=== PATIENT | male | born 1995 | race African-American/Black ===

== ENCOUNTER 2017-01-13 09:33 | Emergency (ER) | payer OTHER ==
[~2017-01-13] VITALS: Ht 177.8 cm; Wt 106.0 kg
[2017-01-13 09:35] VITALS: BP 183/96; PULSE 98; RESP 16; TEMP 98.7; O2SAT 100
[2017-01-13 09:48] VITALS: BP 150/74; PULSE 89; RESP 16; O2SAT 99
[2017-01-13 10:16] LABS: AUTOMATED NEUTROPHIL # 5.7 TH/MM3 (1.8-7.7); BASOPHIL % 0.5 % (0.0-2.0); EOSINOPHIL # 0.1 TH/MM3 (0-0.4); HEMATOCRIT 41.4 % (39.0-51.0); HEMO FLAGS DIFF FINAL; LYMPHOCYTE # 1.4 TH/MM3 (1.0-4.8); MEAN CELL VOLUME 74.2 FL (80.0-100.0); MEAN CORPUSCULAR HEMOGLOBIN 23.5 PG (27.0-34.0); MEAN CORPUSCULAR HGB CONC 31.7 % (32.0-36.0); NEUT % 73.5 % (16.0-70.0); PLATELET COUNT 214 TH/MM3 (150-450); RED BLOOD COUNT 5.58 MIL/MM3 (4.50-5.90); RED CELL DISTRIBUTION WIDTH 13.2 % (11.6-17.2); WHITE BLOOD COUNT 7.7 TH/MM3 (4.0-11.0)
--- NOTE | 2017-01-13 10:23 | PD ---
HPI . Hypertension Chief Complaint: Hypertension Time Seen by Provider: 09:40 Travel History International Travel<30 days: No Contact w/Intl Traveler<30days: No Traveled to known affect area: No History of Present Illness HPI 21 year old male patient presents to the emergency department for evaluation of elevated blood pressure. Patient works at the [employer] and was irritated at work. The nurse on site took his blood pressure and it was elevated in the 170s systolically. The patient states he was told his blood pressure runs high since he was a child, but he has never taken any medication for it. The patient denies any physiological symptoms. No headache, blurred vision, abdominal pain, chest pain, shortness of breath, fever, chills, malaise. The patient doesn't have any other history and doesn't take any daily medications. PFSH Past Medical History Cardiovascular Problems: Yes (HTN) Diminished Hearing: No Hypertension: Yes (pt report HBP in the past but does not take meds) Tetanus Vaccination: > 5 Years Influenza Vaccination: No Past Surgical History Surgical History: No Previous Surgery Social History Alcohol Use: No Tobacco Use: No Substance Use: No Allergies-Medications (Allergen,Severity, Reaction): Coded Allergies: No Known Allergies (Verified Allergy, Unknown, 01/13/17) Reported Meds & Prescriptions Reported Meds & Active Scripts Active No Active Prescriptions or Reported Medications Review of Systems Except as stated in HPI: all other systems reviewed are Neg Physical Exam Narrative GENERAL: Well-nourished, well-developed 21 year old black male patient in no acute distress. Nontoxic appearing. SKIN: Focused skin assessment warm/dry. HEAD: Normocephalic. Atraumatic. NEUROLOGICAL: Awake and alert. Cranial nerves II through XII intact. Motor and sensory grossly within normal limits. Five out of 5 muscle strength in all muscle groups. Normal speech. EYES: No scleral icterus. No injection or drainage. NECK: Supple, trachea midline. No JVD or lymphadenopathy. CARDIOVASCULAR: Regular rate and rhythm without murmurs, gallops, or rubs. RESPIRATORY: Breath sounds equal bilaterally. No accessory muscle use. GASTROINTESTINAL: Abdomen soft, non-tender, nondistended. MUSCULOSKELETAL: No cyanosis, or edema. BACK: Nontender without obvious deformity. No CVA tenderness. Data Data Last Documented VS Vital Signs Date Time Temp Pulse Resp B/P (MAP) Pulse Ox O2 Delivery O2 Flow Rate FiO2 01/13/17 09:49 89 16 99 Room Air 01/13/17 09:48 150/74 (99) 01/13/17 09:35 98.7 Orders Orders Electrocardiogram (01/13/17 09:40) Basic Metabolic Panel (Bmp) (01/13/17 09:40) Complete Blood Count With Diff (01/13/17 09:40) Ecg Monitoring (01/13/17 09:40) Iv Access Insert/Monitor (01/13/17 09:40) Oximetry (01/13/17 09:40) Urinalysis - C+S If Indicated (01/13/17 09:40) Labs Laboratory Tests Test 01/13/17 09:50 White Blood Count 7.7 TH/MM3 Red Blood Count 5.58 MIL/MM3 Hemoglobin 13.1 GM/DL Hematocrit 41.4 % Mean Corpuscular Volume 74.2 FL Mean Corpuscular Hemoglobin 23.5 PG Mean Corpuscular Hemoglobin Concent 31.7 % Red Cell Distribution Width 13.2 % Platelet Count 214 TH/MM3 Mean Platelet Volume 8.4 FL Neutrophils (%) (Auto) 73.5 % Lymphocytes (%) (Auto) 18.0 % Monocytes (%) (Auto) 7.0 % Eosinophils (%) (Auto) 1.0 % Basophils (%) (Auto) 0.5 % Neutrophils # (Auto) 5.7 TH/MM3 Lymphocytes # (Auto) 1.4 TH/MM3 Monocytes # (Auto) 0.5 TH/MM3 Eosinophils # (Auto) 0.1 TH/MM3 Basophils # (Auto) 0.0 TH/MM3 CBC Comment DIFF FINAL Differential Comment Urine Color YELLOW Urine Turbidity CLEAR Urine pH 7.0 Urine Specific [place] 1.023 Urine Protein NEG mg/dL Urine Glucose (UA) NEG mg/dL Urine Ketones NEG mg/dL Urine Occult Blood NEG Urine Nitrite NEG Urine Bilirubin NEG Urine Urobilinogen LESS THAN 2.0 MG/DL Urine Leukocyte Esterase NEG Urine RBC LESS THAN 1 /hpf Urine WBC 1 /hpf Urine Mucus FEW /lpf Microscopic Urinalysis Comment CULT NOT INDICATED Blood Urea Nitrogen 15 MG/DL Creatinine 0.93 MG/DL Random Glucose 108 MG/DL Calcium Level 9.4 MG/DL Sodium Level 139 MEQ/L Potassium Level 3.9 MEQ/L Chloride Level 106 MEQ/L Carbon Dioxide Level 25.7 MEQ/L Anion Gap 7 MEQ/L Estimat Glomerular Filtration Rate 102 ML/MIN MDM Medical Decision Making Medical Screen Exam Complete: Yes Emergency Medical Condition: Yes Differential Diagnosis Differential diagnosis include but not limited to hypertension, elevated blood pressure related to situational irritation, irritation Narrative Course 21 year old male patient presents to the emergency room for evaluation of elevated blood pressure. Patient was at work earlier and became irritated with a situation, his blood pressure was taken by the nurse at that time and it was elevated. Patient states he has had a history of elevated blood pressure in the past but never been on medication for it. IV obtained. Basic blood work obtained to check for organ damage and EKG ordered. Blood pressure decreased to 150s systolically upon initial examination. Blood work shows no acute abnormality. EKG shows sinus rhythm with heart rate 85. Patient will be discharged home with instructions to keep a blood pressure log and follow-up with his primary care. Diagnosis Primary Impression: Elevated blood pressure reading Referrals: Primary Care Physician 1 week Patient Instructions: General Instructions, Hypertension (DC) Additional Instructions: Please return to emergency department if your symptoms return or worsen. Follow up with your primary care provider. Keep a blood pressure log to show your primary care when you follow up. Scripts No Active Prescriptions or Reported Meds Disposition: 01 DISCHARGE HOME Condition: Stable Karen Mata Jan 13, 2017 10:23
[2017-01-13 10:33] LABS: BICARBONATE 25.7 MEQ/L (21.0-32.0); POTASSIUM 3.9 MEQ/L (3.5-5.1)
[2017-01-13 10:56] LABS: BLOOD, URINE NEG (NEG); GLUCOSE,URINE NEG (NEG); KETONE, URINE NEG (NEG); MUCUS URINE FEW /lpf (OCC); NITRITE,URINE NEG (NEG); URINE COLOR YELLOW (YELLW/STRAW)
[2017-01-13 10:57] LABS: COMMENT (UR) CULT NOT INDICATED; CULTURE IF INDICATED CULT NOT INDICATED
[2017-01-13 11:30] VITALS: BP 148/77; TEMP 97.8
--- NOTE | 2017-01-13 14:20 | EKG ---
Date Performed: 01/13/2017 Time Performed: 09:54:40 PTAGE: 21 years EKG: Sinus rhythm MODERATE INTRAVENTRICULAR CONDUCTION DELAY NONSPECIFIC T-WAVE ABNORMALITY BORDERLINE ECG NO PREVIOUS TRACING DOCTOR: Eleuterio Yang Interpretating Date/Time 01/13/2017 14:18:40
== END 2017-01-13 11:30 | disposition home or self-care (01) ==
LOC: NEPD 09:33
DX: I10 Essential (primary) hypertension (principal); R94.31 Abnormal electrocardiogram [ECG] [EKG]
CPT/HCPCS: 80048; 81001; 85025; 93005; 99285